=== PATIENT | male | born 1955 | race Caucasian/White ===

== ENCOUNTER 2017-06-07 21:49 | Emergency (ER) | payer MEDICAID ==
[~2017-06-07] VITALS: Ht 165.1 cm; Wt 77.0 kg
[~2017-06-07 21:49] MED LIST: ATOR40TA72; DILT-35; DULO30CA51; FAMO40TA7; METO-395 PO; NITR0.4T51; OLAN2.5T28; TERB250T4; TIOT18CA3
[2017-06-07] MEDS ORDERED: dexamethasone 4mg tablet PO ONE (23:00)
[2017-06-07] MEDS ORDERED: HYDROcodone/acetaminophen 10/325mg tab PO ONE (23:00)
[2017-06-07] MEDS ORDERED: naproxen 500mg tablet PO ONE (23:00)
[2017-06-07] MEDS ORDERED: ipratropium/albuterol 3ml nebule NEB ONE (23:00)
[2017-06-07] MEDS ORDERED: PRED20TA PO (23:18)
[2017-06-07] MEDS ORDERED: HYDR-569 PO (23:18)
[2017-06-07] MEDS ORDERED: NAPR-56 PO (23:18)
[2017-06-07] MEDS ORDERED: doxycycline hyclate 100mg tablet.DR PO ONE (23:20)
[2017-06-07] MEDS ORDERED: DOXY-200 PO (23:33)
[2017-06-07 23:38] VITALS: BP 131/74
== END 2017-06-07 23:40 | disposition home or self-care (01) ==
LOC: ER 21:49
DX: J18.1 Lobar pneumonia, unspecified organism (principal); M54.5 Low back pain; I25.10 Atherosclerotic heart disease of native coronary artery without angina pectoris; I50.9 Heart failure, unspecified; I25.2 Old myocardial infarction; J44.0 Chronic obstructive pulmonary disease with (acute) lower respiratory infection; F17.210 Nicotine dependence, cigarettes, uncomplicated; M19.90 Unspecified osteoarthritis, unspecified site; Z88.0 Allergy status to penicillin; Z85.828 Personal history of other malignant neoplasm of skin; Z79.899 Other long term (current) drug therapy; Z71.6 Tobacco abuse counseling
CPT/HCPCS: 71046; 94640; 94760; 99284; 99406; J8540

== ENCOUNTER 2018-10-05 10:18 | Observation (INO) | payer MEDICARE, MEDICAID ==
[~2018-10-05] VITALS: Ht 165.1 cm; Wt 73.7 kg
[~2018-10-05 10:18] MED LIST changes: -DULO30CA51; +DULO30CA52; +HYDR-4383 PO
[2018-10-05 11:20] LABS: BASOPHILS # (AUTO) 0.1 X10'3 (0-0.2); BASOPHILS % (AUTO) 0.5 % (0-1); EOSINOPHILS # (AUTO) 0.2 X10'3 (0-0.9); HEMATOCRIT 33.4 % (42.0-52.0); HEMOGLOBIN 11.1 g/dl (14.0-17.9); LYMPHOCYTES # (AUTO) 2.2 X10'3 (1.1-4.8); LYMPHOCYTES % (AUTO) 20.1 % (21-51); MEAN CORPUSCULAR HEMOGLOBIN 30.4 PG (27.0-31.0); MEAN CORPUSCULAR HGB CONC 33.3 g/dL (33.0-36.5); MEAN CORPUSCULAR VOLUME 91.2 FL (78-98); MEAN PLATELET VOLUME 7.3 FL (7.4-10.4); MONOCYTES % (AUTO) 8.8 % (2-12); NEUTROPHILS # (AUTO) 7.5 X10'3 (1.8-7.7); NEUTROPHILS % (AUTO) 68.6 % (42-75); PLATELET COUNT 430 X10'3 (140-440); RED BLOOD COUNT 3.66 X10'6 (4.70-6.10); RED CELL DISTRIBUTION WIDTH 14.6 % (11.5-14.5)
[2018-10-05 11:32] LABS: ALANINE AMINOTRANSFERASE 67 U/L (12-78); ALBUMIN 2.9 G/DL (3.4-5.0); ALBUMIN/GLOBULIN RATIO 0.7 (1.1-1.5); ALKALINE PHOSPHATASE 157 IU/L (46-116); ANION GAP 9 (8-16); ASPARTATE AMINO TRANSFERASE 26 U/L (10-37); BILIRUBIN,TOTAL 0.3 MG/DL (0.1-1.0); BLOOD UREA NITROGEN 20 MG/DL (7-18); BUN/CREATININE RATIO 19.2 (5.4-32.0); CALCIUM 9.4 MG/DL (8.5-10.1); CHLORIDE 102 MMOL/L (99-107); CREATININE 1.04 MG/DL (0.60-1.10); GLUCOSE 117 MG/DL (70-104); POTASSIUM 4.6 MMOL/L (3.5-5.1); SODIUM 139 MMOL/L (135-145); TOTAL CARBON DIOXIDE 28.3 MMOL/L (24-32); TOTAL PROTEIN 7.2 G/DL (6.4-8.2); eGFR 72 ML/MIN
[2018-10-05] MEDS ORDERED: iohexol 300mg/ml 100ml inj. ONE (11:51)
[2018-10-05] MEDS ORDERED: ASPI-611 PO (14:30)
[2018-10-05] MEDS ORDERED: normal saline 1000ml 1,000 ML IV SCH (14:32)
[2018-10-05] MEDS ORDERED: ALBU2.5V12 NEB (14:33)
[2018-10-05] MEDS ORDERED: morphine 2 MG/ML inj. syringe IV PRN (14:35)
[2018-10-05] MEDS ORDERED: acetaminophen 325mg tablet PO PRN (14:35)
[2018-10-05] MEDS ORDERED: magnesium hydroxide 30ml (MOM) UD suspension PO PRN (14:35)
[2018-10-05] MEDS ORDERED: TIOT18CA3 INH (14:35)
[2018-10-05] MEDS ORDERED: HYDROcodone/acetaminophen 5mg/325mg tablet PO PRN (14:35)
[2018-10-05] MEDS ORDERED: OLAN2.5T3 PO (14:35)
[2018-10-05] MEDS ORDERED: ondansetron/PF 4mg/2ml inj IV PRN (14:35)
[2018-10-05] MEDS ORDERED: mag hydrox/Alum hydrox/simeth 30ml oral suspension PO PRN (14:35)
[2018-10-05] MEDS ORDERED: FAMO40TA7 PO (14:36)
[2018-10-05] MEDS ORDERED: DULO-31 PO (14:36)
[2018-10-05] MEDS ORDERED: TERB250T4 PO (14:37)
[2018-10-05] MEDS ORDERED: METO-467 PO (14:37)
[2018-10-05] MEDS ORDERED: ATOR40TA7 PO (14:39)
[2018-10-05] MEDS ORDERED: DILT120C51 PO (14:39)
[2018-10-05] MEDS ORDERED: AMIO200T40 PO (14:40)
[2018-10-05] MEDS ORDERED: NITR0.4T48 SL (14:41)
[2018-10-05] MEDS ORDERED: nitroGLYCERIN 0.4mg SUBLingual tab SL PRN (18:00)
[2018-10-05] MEDS ORDERED: non-formulary drug (Albuterol Sulfate 1 VIAL) NEB PRN (18:00)
--- NOTE | 2018-10-05 18:48 | NUR ---
Patient in room [id number]. I have received report from WANDA Henry in ER and had the opportunity to ask questions and assume patient care.
[2018-10-05 20:00] VITALS: BP 113/48
[2018-10-05] MEDS: amiodarone 200mg tablet PO SCH (20:26)
[2018-10-05] MEDS: metoprolol tartrate 50mg tablet PO SCH (20:27)
[2018-10-05] MEDS: ipratropium 0.5 MG/2.5ML nebule IH SCH (20:28)
[2018-10-05] MEDS ORDERED: aspirin 81mg tablet.DR PO SCH (21:00)
[2018-10-05] MEDS ORDERED: famotidine 20mg tablet PO SCH (21:00)
[2018-10-05] MEDS ORDERED: non-formulary drug (Famotidine 1 TAB) PO SCH (21:00)
[2018-10-05] MEDS ORDERED: non-formulary drug (Atorvastatin Calcium (Lipitor) 1 TABLET) PO SCH (21:00)
[2018-10-05] MEDS ORDERED: albuterol 2.5 MG/3 ML nebule NEB SCH (21:00)
[2018-10-05] MEDS ORDERED: atorvastatin 20mg tablet PO SCH (21:00)
[2018-10-05] MEDS ORDERED: non-formulary drug (Aspirin (Aspir 81) 1 TAB) PO SCH (21:00)
[2018-10-06] VITALS: BP 111/63
[2018-10-06] MEDS ORDERED: normal saline 1000ml 1,000 ML IV SCH (05:25)
[2018-10-06 05:47] LABS: BASOPHILS # (AUTO) 0.1 X10'3 (0-0.2); BASOPHILS % (AUTO) 0.6 % (0-1); EOSINOPHILS # (AUTO) 0.3 X10'3 (0-0.9); EOSINOPHILS % (AUTO) 2.9 % (0-6); HEMATOCRIT 30.9 % (42.0-52.0); HEMOGLOBIN 10.4 g/dl (14.0-17.9); LYMPHOCYTES # (AUTO) 2.5 X10'3 (1.1-4.8); LYMPHOCYTES % (AUTO) 25.2 % (21-51); MEAN CORPUSCULAR HEMOGLOBIN 30.4 PG (27.0-31.0); MEAN CORPUSCULAR HGB CONC 33.6 g/dL (33.0-36.5); MEAN CORPUSCULAR VOLUME 90.5 FL (78-98); MEAN PLATELET VOLUME 7.4 FL (7.4-10.4); MONOCYTES # (AUTO) 0.7 X10'3 (0-0.9); MONOCYTES % (AUTO) 7.5 % (2-12); NEUTROPHILS # (AUTO) 6.3 X10'3 (1.8-7.7); NEUTROPHILS % (AUTO) 63.8 % (42-75); PLATELET COUNT 366 X10'3 (140-440); RED BLOOD COUNT 3.42 X10'6 (4.70-6.10); RED CELL DISTRIBUTION WIDTH 14.9 % (11.5-14.5); WHITE BLOOD COUNT 9.9 X10'3 (4.5-11.0)
[2018-10-06 05:53] LABS: ALBUMIN 2.5 G/DL (3.4-5.0); ANION GAP 8 (8-16); BLOOD UREA NITROGEN 18 MG/DL (7-18); CALCIUM 8.4 MG/DL (8.5-10.1); CHLORIDE 103 MMOL/L (99-107); CREATININE 1.06 MG/DL (0.60-1.10); GLUCOSE 111 MG/DL (70-104); POTASSIUM 4.2 MMOL/L (3.5-5.1); SODIUM 139 MMOL/L (135-145); TOTAL CARBON DIOXIDE 28.3 MMOL/L (24-32); eGFR 70 ML/MIN
--- NOTE | 2018-10-06 06:44 | NUR ---
Problems reprioritized. Patient report given, questions answered & plan of care reviewed with WANDA Garcia.
--- NOTE | 2018-10-06 06:55 | NUR ---
Patient in room [facility]. I have received report from Amanda MUÑOZ and had the opportunity to ask questions and assume patient care.
[2018-10-06 07:22] VITALS: BP 107/56
[2018-10-06] MEDS: ipratropium 0.5 MG/2.5ML nebule IH SCH ×3 (07:56→15:43)
[2018-10-06] MEDS ORDERED: non-formulary drug (Tiotropium Bromide (Spiriva) 2 PUFFS) INH SCH (08:00)
[2018-10-06] MEDS ORDERED: OLANZapine 2.5MG tablet PO SCH (08:00)
[2018-10-06] MEDS ORDERED: non-formulary drug (Diltiazem HCl (Cartia Xt) 1 CAP) PO SCH (08:00)
[2018-10-06] MEDS ORDERED: diltiazem CD 120mg capsule (once-daily) PO SCH (08:00)
[2018-10-06] MEDS ORDERED: duloxetine 30mg CAPSULE.DR PO SCH (08:00)
[2018-10-06] MEDS: metoprolol tartrate 50mg tablet PO SCH (08:00)
[2018-10-06] MEDS ORDERED: terbinafine 250mg tablet PO SCH (08:00)
[2018-10-06] MEDS: amiodarone 200mg tablet PO SCH (08:22)
--- NOTE | 2018-10-06 09:12 | NUR ---
I have reviewed and agree with all medications administered and interventions performed by [facility] Student Magaly Gupta Addendum: 10/06/18 at 12 by Hallie Montero RT Amended: Links added.
[2018-10-06 11:00] VITALS: BP 125/66
[2018-10-06] MEDS ORDERED: iohexol 300 MG/1 ML 50ml polymer ONE (12:35)
[2018-10-06 14:08] VITALS: BP 133/50
[2018-10-06 14:22] VITALS: BP 83/64
[2018-10-06 14:26] VITALS: BP 145/68
--- NOTE | 2018-10-06 16:14 | NUR ---
Patient seen by Dr alford and Dr aponte. Seroma drained by IR. 650mls observed. patient tolerated procedure. All Dc instructions given with present. Dc home via private car to home in stable condition with .
== END 2018-10-06 16:06 | disposition home or self-care (01) ==
LOC: ER 10:19 → SUR 3N 14:49 → CMPBEDREQ 19:48
PROVIDERS: ADMIT Family Medicine; ATTEND Family Medicine
DX: S27.321A Contusion of lung, unilateral, initial encounter (principal); E78.5 Hyperlipidemia, unspecified; J44.9 Chronic obstructive pulmonary disease, unspecified; I25.10 Atherosclerotic heart disease of native coronary artery without angina pectoris; Z85.118 Personal history of other malignant neoplasm of bronchus and lung; Z87.891 Personal history of nicotine dependence; Z88.0 Allergy status to penicillin; Z79.82 Long term (current) use of aspirin; I25.2 Old myocardial infarction; I11.0 Hypertensive heart disease with heart failure; I50.9 Heart failure, unspecified; M19.90 Unspecified osteoarthritis, unspecified site; X58.XXXA Exposure to other specified factors, initial encounter; Y93.89 Activity, other specified; Y92.89 Other specified places as the place of occurrence of the external cause
CPT/HCPCS: 32555; 36415; 71045; 71260; 80048; 80053; 85025; 87081; 94640; 94760; 96374; 99284; G0378; J2270; J7030; Q9967

== ENCOUNTER 2018-11-06 08:05 | Day surgery (SDC) | payer MEDICARE, MEDICAID ==
[~2018-11-06] VITALS: Ht 167.6 cm; Wt 76.9 kg
[~2018-11-06 08:05] MED LIST changes: +ALBU2.5V12 NEB; +AMIO200T61 PO; +ASPI-611 PO; +ATOR40TA7 PO; -ATOR40TA72; -DILT-35; +DILT120C51 PO; +DULO-31 PO; -DULO30CA52; -FAMO40TA7; +FAMO40TA7 PO; -HYDR-4383 PO; -METO-395 PO; +METO-467 PO; +NITR0.4T48 SL; -NITR0.4T51; -OLAN2.5T28; +OLAN2.5T3 PO; -TERB250T4; +TERB250T4 PO; -TIOT18CA3; +TIOT18CA3 INH
[2018-11-06] MEDS ORDERED: normal saline 1000ml 1,000 ML IV PRN (08:45)
[2018-11-06 09:09] VITALS: BP 138/71
[2018-11-06 09:20] LABS: BASOPHILS # (AUTO) 0.1 X10'3 (0-0.2); BASOPHILS % (AUTO) 0.7 % (0-1); EOSINOPHILS # (AUTO) 0.4 X10'3 (0-0.9); EOSINOPHILS % (AUTO) 3.9 % (0-6); HEMATOCRIT 39.2 % (42.0-52.0); HEMOGLOBIN 13.2 g/dl (14.0-17.9); LYMPHOCYTES # (AUTO) 2.5 X10'3 (1.1-4.8); LYMPHOCYTES % (AUTO) 22.2 % (21-51); MEAN CORPUSCULAR HGB CONC 33.6 g/dL (33.0-36.5); MEAN CORPUSCULAR VOLUME 89.4 FL (78-98); MEAN PLATELET VOLUME 7.9 FL (7.4-10.4); MONOCYTES # (AUTO) 0.8 X10'3 (0-0.9); MONOCYTES % (AUTO) 6.8 % (2-12); NEUTROPHILS # (AUTO) 7.5 X10'3 (1.8-7.7); NEUTROPHILS % (AUTO) 66.4 % (42-75); PLATELET COUNT 409 X10'3 (140-440); RED BLOOD COUNT 4.39 X10'6 (4.70-6.10); RED CELL DISTRIBUTION WIDTH 14.6 % (11.5-14.5); WHITE BLOOD COUNT 11.4 X10'3 (4.5-11.0)
[2018-11-06 09:30] LABS: ALANINE AMINOTRANSFERASE 26 U/L (12-78); ALBUMIN 3.7 G/DL (3.4-5.0); ALBUMIN/GLOBULIN RATIO 0.8 (1.1-1.5); ALKALINE PHOSPHATASE 134 IU/L (46-116); ANION GAP 10 (8-16); ASPARTATE AMINO TRANSFERASE 13 U/L (10-37); BILIRUBIN,TOTAL 0.3 MG/DL (0.1-1.0); BLOOD UREA NITROGEN 14 MG/DL (7-18); BUN/CREATININE RATIO 13.9 (5.4-32.0); CALCIUM 9.1 MG/DL (8.5-10.1); CHLORIDE 103 MMOL/L (99-107); CREATININE 1.01 MG/DL (0.60-1.10); GLUCOSE 121 MG/DL (70-104); POTASSIUM 4.2 MMOL/L (3.5-5.1); SODIUM 141 MMOL/L (135-145); TOTAL CARBON DIOXIDE 28.1 MMOL/L (24-32); TOTAL PROTEIN 8.2 G/DL (6.4-8.2); eGFR 74 ML/MIN
[2018-11-06 10:30] VITALS: BP 135/68
== END 2018-11-06 10:50 | disposition home or self-care (01) ==
LOC: SSTAY O 08:05
PROVIDERS: ATTEND Radiology Diagnostic Radiology
DX: L76.34 Postprocedural seroma of skin and subcutaneous tissue following other procedure (principal); I10 Essential (primary) hypertension; M19.90 Unspecified osteoarthritis, unspecified site; J44.9 Chronic obstructive pulmonary disease, unspecified; K21.9 Gastro-esophageal reflux disease without esophagitis; I25.10 Atherosclerotic heart disease of native coronary artery without angina pectoris; E78.00 Pure hypercholesterolemia, unspecified; Z79.899 Other long term (current) drug therapy; Z88.8 Allergy status to other drugs, medicaments and biological substances; Z88.0 Allergy status to penicillin; Z79.82 Long term (current) use of aspirin; Z87.891 Personal history of nicotine dependence; Z98.890 Other specified postprocedural states; Z85.118 Personal history of other malignant neoplasm of bronchus and lung; Y83.8 Other surgical procedures as the cause of abnormal reaction of the patient, or of later complication, without mention of misadventure at the time of the procedure; Y82.8 Other medical devices associated with adverse incidents
CPT/HCPCS: 10160; 36415; 76942; 80053; 85025; 85610; J7030

== ENCOUNTER 2019-05-06 14:26 | Emergency (ER) | payer MEDICARE, MEDICAID ==
[~2019-05-06] VITALS: Ht 172.7 cm; Wt 81.8 kg
[2019-05-06] MEDS ORDERED: ACET-3068 PO (16:10)
[2019-05-06] MEDS ORDERED: acetaminophen w/codeine (30MG) #3 tablet PO ONE (16:10)
[2019-05-06 17:47] VITALS: BP 115/69
== END 2019-05-06 17:46 | disposition home or self-care (01) ==
LOC: ER 14:27
DX: R07.89 Other chest pain (principal); R05 Cough; R09.81 Nasal congestion; I25.10 Atherosclerotic heart disease of native coronary artery without angina pectoris; I50.9 Heart failure, unspecified; I25.2 Old myocardial infarction; J44.9 Chronic obstructive pulmonary disease, unspecified; M19.90 Unspecified osteoarthritis, unspecified site; Z98.890 Other specified postprocedural states; Z88.0 Allergy status to penicillin; Z88.8 Allergy status to other drugs, medicaments and biological substances; Z79.82 Long term (current) use of aspirin; Z79.899 Other long term (current) drug therapy; Z87.891 Personal history of nicotine dependence
CPT/HCPCS: 36415; 71046; 87502; 87503; 93005; 99284

== ENCOUNTER 2020-06-14 10:36 | Emergency (ER) | payer MEDICARE, MEDICAID ==
[~2020-06-14] VITALS: Ht 167.6 cm; Wt 75.0 kg
[2020-06-14] MEDS ORDERED: LIDOcaine 1% 30ml preserv. free vial IJ ONE (11:40)
[2020-06-14 13:07] VITALS: BP 126/77
== END 2020-06-14 13:25 | disposition home or self-care (01) ==
LOC: ER 10:36
DX: S16.1XXA Strain of muscle, fascia and tendon at neck level, initial encounter (principal); I25.10 Atherosclerotic heart disease of native coronary artery without angina pectoris; I50.9 Heart failure, unspecified; I25.2 Old myocardial infarction; J44.9 Chronic obstructive pulmonary disease, unspecified; M19.90 Unspecified osteoarthritis, unspecified site; Z85.9 Personal history of malignant neoplasm, unspecified; Z79.899 Other long term (current) drug therapy; Z79.82 Long term (current) use of aspirin; Z88.0 Allergy status to penicillin; Z88.8 Allergy status to other drugs, medicaments and biological substances; X58.XXXA Exposure to other specified factors, initial encounter; Y93.89 Activity, other specified; Y92.89 Other specified places as the place of occurrence of the external cause; Y99.8 Other external cause status
CPT/HCPCS: 20552; 99284; J2001; 99283

== ENCOUNTER 2021-12-10 11:10 | Emergency (ER) | payer MEDICARE, MEDICAID ==
[~2021-12-10] VITALS: Ht 165.1 cm; Wt 72.7 kg
[~2021-12-10 11:10] MED LIST changes: -TERB250T4 PO; +TERB250T89 PO
[2021-12-10 11:33] VITALS: BP 117/60
[2021-12-10 13:10] LABS: CLARITY,URINE CLEAR (Clear); COLOR,URINE YELLOW (Yellow); GLUCOSE, URINE NEGATIVE (Neg); KETONES,URINE NEGATIVE (Neg); LEUKOCYTE ESTERASE ,URINE NEGATIVE (Neg); NITRITES, URINE NEGATIVE (Neg); OCCULT BLOOD,URINE NEGATIVE (Neg); PH,URINE 5.5 (4.8-8.0); PROTEIN,URINE NEGATIVE (Neg); UROBILINOGEN,URINE 0.2 E.U/dL (0.2-1.0)
[2021-12-10 13:11] LABS: BASOPHILS # (AUTO) 0.1 X10'3 (0-0.2); BASOPHILS % (AUTO) 0.5 % (0-1); EOSINOPHILS # (AUTO) 0.3 X10'3 (0-0.9); EOSINOPHILS % (AUTO) 2.7 % (0-6); HEMATOCRIT 35.8 % (42.0-52.0); HEMOGLOBIN 11.6 g/dl (14.0-17.9); LYMPHOCYTES # (AUTO) 2.4 X10'3 (1.1-4.8); LYMPHOCYTES % (AUTO) 20.2 % (21-51); MEAN CORPUSCULAR HEMOGLOBIN 27.1 PG (27.0-31.0); MEAN CORPUSCULAR HGB CONC 32.5 g/dL (33.0-36.5); MEAN CORPUSCULAR VOLUME 83.5 FL (78-98); MEAN PLATELET VOLUME 7.7 FL (7.4-10.4); MONOCYTES # (AUTO) 0.9 X10'3 (0-0.9); NEUTROPHILS % (AUTO) 68.6 % (42-75); PLATELET COUNT 370 X10'3 (140-440); RED BLOOD COUNT 4.29 X10'6 (4.70-6.10); RED CELL DISTRIBUTION WIDTH 14.9 % (11.5-14.5); WHITE BLOOD COUNT 11.6 X10'3 (4.5-11.0)
[2021-12-10 13:19] LABS: ALANINE AMINOTRANSFERASE 26 U/L (12-78); ALBUMIN 3.1 G/DL (3.4-5.0); ALBUMIN/GLOBULIN RATIO 0.8 (1.1-1.5); ALKALINE PHOSPHATASE 101 IU/L (46-116); ANION GAP 5 (8-16); ASPARTATE AMINO TRANSFERASE 19 U/L (10-37); BILIRUBIN,TOTAL 0.5 MG/DL (0.1-1.0); BLOOD UREA NITROGEN 19 MG/DL (7-18); BUN/CREATININE RATIO 18.8 (5.4-32.0); CHLORIDE 103 MMOL/L (99-107); CREATININE 1.01 MG/DL (0.60-1.10); GLUCOSE 123 MG/DL (70-104); SODIUM 139 MMOL/L (135-145); TOTAL CARBON DIOXIDE 31.5 MMOL/L (24-32); TOTAL PROTEIN 6.9 G/DL (6.4-8.2); eGFR 73 ML/MIN
[2021-12-10 13:21] LABS: UA COLLECTION TYPE VOIDED
== END 2021-12-10 13:49 | disposition home or self-care (01) ==
LOC: ER 11:10
DX: R25.2 Cramp and spasm (principal); I25.10 Atherosclerotic heart disease of native coronary artery without angina pectoris; I50.9 Heart failure, unspecified; I25.2 Old myocardial infarction; J44.9 Chronic obstructive pulmonary disease, unspecified; M19.90 Unspecified osteoarthritis, unspecified site; Z85.9 Personal history of malignant neoplasm, unspecified; Z98.890 Other specified postprocedural states; Z88.0 Allergy status to penicillin; Z88.6 Allergy status to analgesic agent; Z79.82 Long term (current) use of aspirin; Z79.899 Other long term (current) drug therapy
CPT/HCPCS: 36415; 80053; 81003; 85025; 93971; 99284

== ENCOUNTER 2021-12-18 19:29 | Emergency (ER) | payer MEDICARE, MEDICAID ==
[~2021-12-18] VITALS: Ht 165.1 cm; Wt 76.5 kg
[2021-12-18 19:42] VITALS: BP 139/65
[2021-12-18] MEDS ORDERED: ondansetron 4mg rapidly disintigrating tab PO ONE (23:25)
[2021-12-18] MEDS ORDERED: oxyCODONE IR 5mg (immed. release) tablet PO ONE (23:25)
--- NOTE | 2021-12-18 23:43 | NUR ---
po meds x2 given
[2021-12-18] MEDS ORDERED: ONDA4TAB12 PO (23:46)
[2021-12-18] MEDS ORDERED: OXYC-658 PO (23:46)
== END 2021-12-18 23:59 | disposition home or self-care (01) ==
LOC: ER 19:29
DX: M79.605 Pain in left leg (principal); I25.10 Atherosclerotic heart disease of native coronary artery without angina pectoris; I50.9 Heart failure, unspecified; I25.2 Old myocardial infarction; J44.9 Chronic obstructive pulmonary disease, unspecified; M19.90 Unspecified osteoarthritis, unspecified site; Z85.9 Personal history of malignant neoplasm, unspecified; Z98.890 Other specified postprocedural states; Z88.0 Allergy status to penicillin; Z79.82 Long term (current) use of aspirin; Z88.8 Allergy status to other drugs, medicaments and biological substances; Z79.899 Other long term (current) drug therapy
CPT/HCPCS: 73564; 99283

== ENCOUNTER 2022-01-07 08:09 | Emergency (ER) | payer MEDICARE, MEDICAID ==
[~2022-01-07] VITALS: Ht 165.1 cm; Wt 75.0 kg
[~2022-01-07 08:09] MED LIST changes: +ONDA4TAB12 PO; +OXYC-658 PO
[2022-01-07 08:42] VITALS: BP 110/65
== END 2022-01-07 10:51 | disposition left against medical advice (07) ==
LOC: ER 08:09
DX: M25.552 Pain in left hip (principal); Z53.21 Procedure and treatment not carried out due to patient leaving prior to being seen by health care provider

== ENCOUNTER 2022-07-08 07:12 | Emergency (ER) | payer MEDICARE, MEDICAID ==
[~2022-07-08] VITALS: Ht 167.6 cm; Wt 72.7 kg
[~2022-07-08 07:12] MED LIST changes: -OXYC-658 PO
[2022-07-08 07:18] VITALS: BP 106/55
[2022-07-08 08:07] LABS: BASOPHILS % (AUTO) 0.3 % (0-1); EOSINOPHILS # (AUTO) 0.1 X10'3 (0-0.9); EOSINOPHILS % (AUTO) 1.1 % (0-6); HEMATOCRIT 34.4 % (42.0-52.0); HEMOGLOBIN 11.2 g/dl (14.0-17.9); LYMPHOCYTES % (AUTO) 10.5 % (21-51); MEAN CORPUSCULAR HEMOGLOBIN 28.4 PG (27.0-31.0); MEAN CORPUSCULAR HGB CONC 32.7 g/dL (33.0-36.5); MEAN CORPUSCULAR VOLUME 86.6 FL (78-98); MEAN PLATELET VOLUME 6.9 FL (7.4-10.4); MONOCYTES # (AUTO) 0.8 X10'3 (0-0.9); MONOCYTES % (AUTO) 8.6 % (2-12); NEUTROPHILS # (AUTO) 7.5 X10'3 (1.8-7.7); NEUTROPHILS % (AUTO) 79.5 % (42-75); PLATELET COUNT 204 X10'3 (140-440); RED BLOOD COUNT 3.97 X10'6 (4.70-6.10); RED CELL DISTRIBUTION WIDTH 16.2 % (11.5-14.5); WHITE BLOOD COUNT 9.5 X10'3 (4.5-11.0)
[2022-07-08 08:23] LABS: ALANINE AMINOTRANSFERASE 31 U/L (12-78); ALBUMIN 2.8 G/DL (3.4-5.0); ALBUMIN/GLOBULIN RATIO 0.6 (1.1-1.5); ALKALINE PHOSPHATASE 195 IU/L (46-116); ANION GAP 6 (8-16); ASPARTATE AMINO TRANSFERASE 24 U/L (10-37); BILIRUBIN,TOTAL 0.7 MG/DL (0.1-1.0); BLOOD UREA NITROGEN 21 MG/DL (7-18); BUN/CREATININE RATIO 24.7 (10.0-20.0); CALCIUM 8.9 MG/DL (8.5-10.1); CHLORIDE 97 MMOL/L (99-107); CREATININE 0.85 MG/DL (0.60-1.10); GLUCOSE 221 MG/DL (70-104); LIPASE < 50 U/L (73-393); POTASSIUM 4.1 MMOL/L (3.5-5.1); SODIUM 134 MMOL/L (135-145); TOTAL CARBON DIOXIDE 30.6 MMOL/L (24-32); TOTAL PROTEIN 7.3 G/DL (6.4-8.2); eGFR 90 ML/MIN
== END 2022-07-08 11:14 | disposition left against medical advice (07) ==
LOC: ER 07:13
DX: M79.605 Pain in left leg (principal); Z53.21 Procedure and treatment not carried out due to patient leaving prior to being seen by health care provider
CPT/HCPCS: 36415; 80053; 83690; 85025; 99281